=== PATIENT | female | born 1985 | race Caucasian/White ===

== ENCOUNTER → 2017-01-12 | Outpatient (CLI) | payer SELFPAY ==
[2015-01-10 09:03] VITALS: BP 101/55
== END ==
LOC: RAD 14:26
PROVIDERS: ATTEND Specialist
DX: Z36 Encounter for antenatal screening of mother (principal)

== ENCOUNTER 2017-02-24 04:46 | Inpatient (IN) | payer BC ==
[2017-02-24 04:53] VITALS: BMI 34.4
[2017-02-24] MEDS ORDERED: NS 1000 ML 1,000 ML ONE (05:05)
[2017-02-24] MEDS ORDERED: PITOCIN ONE (05:41)
[2017-02-24] MEDS ORDERED: FENTANYL INJ 100 mcg ONE (05:42)
[2017-02-24] MEDS ORDERED: D5 1/2 NS 1L W PITOCIN 20 UNITS/L 20 UNITS/1,000 ML BAG IV ONE (05:42)
[2017-02-24 05:47] LABS: BASOPHILS # (AUTO) 0.1 X10^3/uL (0.0-0.1); BASOPHILS % (AUTO) 0.6 % (0.2-1.0); EOSINOPHILS # (AUTO) 0.1 x10^3/uL (0.0-0.2); EOSINOPHILS % (AUTO) 1.3 % (0.9-2.9); HEMOGLOBIN 13.5 g/dL (12.0-16.0); LYMPHOCYTES # (AUTO) 1.9 X10^3/uL (1.3-2.9); LYMPHOCYTES % (AUTO) 18.7 % (21.0-51.0); MEAN CORPUSCULAR HGB CONC 34.6 g/dL (33.0-35.0); MEAN CORPUSCULAR VOLUME 95.6 fL (80.0-100.0); MONOCYTES # (AUTO) 0.7 x10^3/uL (0.3-0.8); MONOCYTES % (AUTO) 6.7 % (0.0-13.0); NEUTROPHILS # (AUTO) 7.4 x10^3/uL (2.2-4.8); NEUTROPHILS % (AUTO) 72.7 % (42.0-75.0); PLATELET COUNT 186 X10^3/uL (150.0-450.0); RED BLOOD COUNT 4.08 X10^6/uL (3.5-5.4); RED CELL DISTRIBUTION WIDTH 12.6 % (11.6-16.5); WHITE BLOOD COUNT 10.1 X10^3/uL (3.6-10.0)
[2017-02-24] MEDS ORDERED: NS 100 ML IV 100 ML IV ONE (05:58)
[2017-02-24] MEDS ORDERED: ANCEF VIAL 1 GM ONE (05:58)
[2017-02-24] MEDS ORDERED: XYLOCAINE 1 % (PLAIN) ONE (06:02)
[2017-02-24] MEDS ORDERED: LR 1000 ML IV 1,000 ML IV ONE (06:09)
[2017-02-24 06:20] LABS: BLOOD UREA NITROGEN 12 mg/dL (7-18); CALCIUM 9.2 mg/dL (8.5-10.1); CARBON DIOXIDE 23.3 mmol/L (21-32); CHLORIDE 103 mmol/L (98-107); CREATININE 0.59 mg/dL (0.55-1.02); SODIUM 138 mmol/L (136-145); eGFR BLACK RACES > 60 (>60); eGFR NON BLACK RACES > 60 (>60)
[2017-02-24] MEDS ORDERED: PITOCIN IVP ONE (06:39)
[2017-02-24] MEDS ORDERED: ANCEF VIAL 1 GM 2 GM in NS 100 ML IV 100 ML IV ONE (06:39)
[2017-02-24] MEDS ORDERED: D5 1/2 NS 1000 ML 1,000 ML IV SCH (07:00)
--- NOTE | 2017-02-24 07:18 | DR.OB ---
OB Quick Note - Assessment/Plan Assessment/Plan: Delivery Note DISPLAY COORDINATOR 02/24/17 at 7:00am Patient complete and pushing. Head delivered over intact perineum. No nuchal cord. Nose and mouth bulb suctioned. Body delivered over intact perineum. Lated meconium noted. Cord clamped x 2 and cut. handed to attendant. Cord sent for gases. Placenta delivered spontaneously / intact / 3 vessel cord. No CVX / vaginal / perineal tears. Viable male , VTX/OA, wt=7'10" and 9/9, stable to NBN. [id number].
[2017-02-24] MEDS ORDERED: MOTRIN TAB 800 MG PO PRN (07:19)
[2017-02-24] MEDS ORDERED: PHENERGAN INJ 25 MG IV PRN ×2 (07:19→08:46)
[2017-02-24] MEDS ORDERED: FLUVIRIN IM ONE (07:57)
[2017-02-24] MEDS ORDERED: D5 1/2 NS 1000 ML 1,000 ML with PITOCIN 20 UNITS IV SCH ×4 (08:00→16:00)
[2017-02-24] MEDS ORDERED: ADACEL TDaP IM ONE (08:46)
[2017-02-24] MEDS ORDERED: DERMOPLAST SPRAY TOP PRN (08:46)
[2017-02-24] MEDS ORDERED: AMBIEN PO PRN (08:46)
[2017-02-24] MEDS ORDERED: MILK OF MAGNESIA PO PRN (08:46)
[2017-02-24] MEDS ORDERED: PRENATAL PLUS PO SCH (09:00)
[2017-02-24] MEDS: PROTONIX TAB 40 MG PO SCH ×2 (10:40→10:55)
[2017-02-24] MEDS: MOTRIN TAB 800 MG PO PRN ×2 (10:56→18:11)
[2017-02-24] MEDS ORDERED: ANCEF VIAL 1 GM 1 GM in NS 50 ML IV + SPIKE MINIBAG* 50 ML IV SCH (14:00)
[2017-02-24 21:36] VITALS: BP 127/83
== END 2017-02-24 22:10 | disposition home or self-care (01) | DRG 775 ==
LOC: ER 04:46 → LD 05:47 → ER 05:48 → MED/SURG 09:11
PROVIDERS: ADMIT Specialist; ATTEND Specialist
PROC: 10E0XZZ Delivery of Products of Conception, External Approach (ICD-10-PCS; principal; 2017-02-24)
PROC: 00HU33Z Insertion of Infusion Device into Spinal Canal, Percutaneous Approach (ICD-10-PCS; 2017-02-24)
DX: O60.14X0 Preterm labor third trimester with preterm delivery third trimester, not applicable or unspecified (principal); O99.613 Diseases of the digestive system complicating pregnancy, third trimester; Z37.0 Single live birth; Z3A.36 36 weeks gestation of pregnancy
CPT/HCPCS: 36415; 80048; 85025; 86592; 86850; 86900; 86901; 90686; 99284; A4222; S0197; J0690; J2001; J2590; J3010; J7120